=== PATIENT | male | born 1970 | race Caucasian/White ===

== ENCOUNTER → 2019-06-30 | Outpatient (CLI) | payer SELFPAY ==
--- NOTE | 2019-06-30 12:42 | Diagnostic Imaging Report ---
PROCEDURE: US Thyroid. TECHNIQUE: Multiple real-time grayscale images were obtained of the thyroid in various projections. INDICATION: Hyperthyroidism. FINDINGS: The right lobe of the thyroid measures 5.1 x 1.4 x 1.7 cm. Left lobe measures 5.5 x 2.9 x 2.8 cm. There are several tiny cysts in the right lobe, largest measuring 7 mm. There is a heterogeneous nodule in the posterior aspect of the left lobe measuring 2.1 x 1.4 x 1.4 cm. There are some questionable microcalcifications within this. There is also an echogenic cluster of calcifications measuring 1.3 x 1.2 cm. There is a prominent lymph node in the left neck measuring 2.6 x 0.7 x 0.8 cm. IMPRESSION: Heterogeneous nodule in the posterior aspect of the left lobe of the thyroid with questionable microcalcifications measuring up to 2.1 cm. Further evaluation with fine-needle aspiration is recommended. Dictated by: Dictated on workstation # [id number]
--- NOTE | 2019-07-01 11:13 | Diagnostic Imaging Report ---
Exam: Nuclear medicine thyroid imaging and uptake. Date: 07/01/2019 10:56 AM Indication: 49-year-old male, hyperthyroidism. Comparison: Thyroid ultrasound June 30, 2019. Findings: 209 ?Ci of I-123 was administered. Subsequent scintigraphic images of the thyroid were obtained in multiple projections. 6 and 24-hour thyroid uptake rise were obtained. 6 hour thyroid uptake is calculated at 41%. 24-hour thyroid uptake is calculated at 67%. Normal range for uptake at 4-6 hours (5-20%). Normal range of uptake at 24 hours (10-35%). There is diffuse radiotracer uptake throughout the right and left lobes of the thyroid. There is no identified radiotracer avid or photopenic nodule. Previously noted thyroid nodules on recent thyroid ultrasound are not aided in diagnostic assessment on the basis of this exam. Impression: 1. Elevated thyroid uptake values with diffuse radiotracer activity throughout the thyroid. Findings may be seen with Graves' disease. Recommend correlation with laboratory analysis. 2. Previously noted thyroid nodules on recent ultrasound are not aided in nondiagnostic assessment on this exam. Fine-needle aspiration of the previously mentioned concerning left thyroid nodule is recommended. Dictated by: Dictated on workstation # [id number]
== END ==
LOC: RAD 10:30
PROVIDERS: ATTEND Nurse Practitioner Family
DX: E05.90 Thyrotoxicosis, unspecified without thyrotoxic crisis or storm (principal); E04.1 Nontoxic single thyroid nodule
CPT/HCPCS: 76536; 78014

== ENCOUNTER → 2019-07-24 | Outpatient (CLI) | payer SELFPAY ==
[~2019-07-24] VITALS: Ht 172.7 cm; Wt 93.2 kg
[~2019-07-24] MED LIST: LIDOCAINE 1% INJ 20 ML 20 ML VIAL INJ ONE
--- NOTE | 2019-07-24 10:01 | Diagnostic Imaging Report ---
INDICATION: Left thyroid nodule. Patient presents for ultrasound-guided fine-needle aspiration. FINDINGS: Patient brought to the procedure room, placed on table in the supine position. Ultrasound imaging of the left neck was performed to evaluate appropriate entry site. Left neck was then prepped and draped in usual sterile fashion. Small amount of 1% lidocaine was utilized for local anesthesia. A total of four passes were made into the irregular hypoechoic and partially calcified nodule in the inferior left lobe of the thyroid utilizing 25-gauge needles and fine-needle aspiration technique. Hemostasis was obtained using manual compression. Patient tolerated procedure well and left department in stable condition. IMPRESSION: Successful ultrasound-guided fine-needle aspiration of the hypoechoic and partially calcified nodule in the lower pole left lobe of the thyroid. Pathology results are currently pending. Dictated by: Dictated on workstation # [id number]
== END ==
LOC: RAD 09:02
PROVIDERS: ATTEND Nurse Practitioner Family
DX: E04.1 Nontoxic single thyroid nodule (principal)
CPT/HCPCS: 88173; 88305